=== PATIENT | female | born 1985 | race African-American/Black ===

== ENCOUNTER 2016-12-20 18:36 | Emergency (ER) | payer OTHER ==
[2016-12-20 18:46] VITALS: BP 131/57; PULSE 62; TEMP 98.3; BMI 33.4
--- NOTE | 2016-12-20 19:46 | PDOC ---
History of Present Illness - General Chief Complaint: Pain Stated Complaint: STOMACH PAIN Time Seen by Provider: 12/20/16 19:42 History Source: Patient Exam Limitations: No Limitations - History of Present Illness Initial Comments: 12/20/16 19:46 The patient is a 31 year old female, with a significant past medical history of hereditary spherocytosis and diverticulitis, who presents to the emergency department with left sided stomach and mid back pain x 3 days. Patient states pain is 9/10, constant, nonradiating. Patient tried midol with minimal improvement in her pain. Patient states she is on depot and her LMP was in July. Patient endorses nausea, vomting x 3 (nonbloody/nonbilious), and constipation x3 days. Patient denies fever, chills, chest pain, shortness of breath, headache and dizziness. Denies dysuria, frequency, urgency and hematuria. Allergies: NKDA Past surgical history: splenectomy Social history:1/2 ppd x10 yrs. No alcohol/drug use PMD - Dr. Dodson. GI- Does not have 12/20/16 20:25 Past History - Past Medical History Allergies/Adverse Reactions: Allergies Allergy/AdvReac Type Severity Reaction Status Date / Time No Known Allergies Allergy Verified 01/14/16 00:34 Home Medications: Ambulatory Orders Amox-Tr/K Cl [Augmentin 875-125mg Tablet -] 1 tab PO BID #20 tablet 12/21/16 Ondansetron [Zofran *Odt*] 8 mg PO DAILY PRN #20 tab.rapdis MDD 2 tablets Oxycodone HCl/Acetaminophen [Percocet 5-325 mg Tablet] 1 tab PO Q6H #12 tablet MDD 4 tablets total 12/21/16 Anemia: Yes (Spherocytis) Asthma: No Cancer: No Cardiac Disorders: No CVA: No COPD: No CHF: No Dementia: No Diabetes: No GI Disorders: Yes (DIVERTICULITIS) Disorders: No HTN: No Hypercholesterolemia: No Liver Disease: No Seizures: No Thyroid Disease: No Other medical history: Spleen removed at age 6 - Surgical History Abdominal Surgery: Yes (abcess drain and splenectomy) - Reproductive History (#): 1 Para: 1 - Immunization History Immunization Up to Date: Yes - Suicide/Smoking/Psychosocial Hx Smoking History: Current every day smoker Have you smoked in the past 12 months: No Number of Cigarettes Smoked Daily: 10 Information on smoking cessation initiated: No 'Breaking Loose' booklet given: 12/20/16 Hx Alcohol Use: No Drug/Substance Use Hx: No Substance Use Type: None Hx Substance Use Treatment: No Review of Systems - Review of Systems Able to Perform ROS?: Yes Comments:: 12/20/16 19:46 GENERAL/CONSTITUTIONAL: No fever or chills. No weakness. HEAD, EYES, EARS, NOSE AND THROAT: No change in vision. No ear pain or discharge. No sore throat. CARDIOVASCULAR: No chest pain or shortness of breath RESPIRATORY: No cough, wheezing, or hemoptysis. GASTROINTESTINAL: +nausea, +vomiting, No diarrhea, +constipation. +abdominal pain, +back pain GENITOURINARY: No dysuria, frequency, or change in urination. MUSCULOSKELETAL: No joint or muscle swelling or pain. No neck or back pain. SKIN: No rash NEUROLOGIC: No headache, vertigo, loss of consciousness, or change in strength/ sensation. ENDOCRINE: No increased thirst. No abnormal weight change HEMATOLOGIC/LYMPHATIC: No anemia, easy bleeding, or history of blood clots. ALLERGIC/IMMUNOLOGIC: No hives or skin allergy. *Physical Exam - Vital Signs Last Vital Signs Temp Pulse Resp BP Pulse Ox 98.3 F 62 18 131/57 100 12/20/16 18:44 12/20/16 18:44 12/20/16 18:44 12/20/16 18:44 12/20/16 18:44 - Physical Exam Comments: 12/20/16 19:46 GENERAL: Awake, alert, and fully oriented, in no acute distress HEAD: No signs of trauma, normocephalic, atraumatic EYES: PERRLA, EOMI, sclera anicteric, conjunctiva clear ENT: Auricles normal inspection, hearing grossly normal, nares patent, oropharynx clear without exudates. Moist mucosa NECK: Normal ROM, supple, no lymphadenopathy, JVD, or masses LUNGS: No distress, speaks full sentences, clear to auscultation bilaterally HEART: Regular rate and rhythm, normal S1 and S2, no murmurs, rubs or gallops, peripheral pulses normal and equal bilaterally. ABDOMEN: Soft, +tender to LUQ and LLQ (Deep palpation), normoactive bowel sounds. No guarding, no rebound. No masses EXTREMITIES: Normal inspection, Normal range of motion, no edema. No clubbing or cyanosis. NEUROLOGICAL: Cranial nerves II through XII grossly intact. Normal speech, normal gait, no focal sensorimotor deficits SKIN: Warm, Dry, normal turgor, no rashes or lesions noted. 12/20/16 20:24 ED Treatment Course - LABORATORY CBC & Chemistry Diagram: 12/20/16 20:14 12/20/16 20:14 Medical Decision Making - Medical Decision Making 12/20/16 20:25 The patient is a 31 year old female, with a significant past medical history of hereditary spherocytosis and diverticulitis, who presents to the emergency department with left sided stomach and mid back pain x 3 days. Given hx/pe, differential includes diverticulitis, UTI. Plan: CBC, CMP, Lipase, UA, Ucx, Upreg, IVF, CT abd/pelvis with contrast, symptom control Care taken over by Dr. Cardenas *DC/Admit/Observation/Transfer Diagnosis at time of Disposition: Diverticulitis - Discharge Dispostion Disposition: HOME Condition at time of disposition: Improved - Prescriptions Prescriptions: Amox-Tr/K Cl [Augmentin 875-125mg Tablet -] 1 tab PO BID #20 tablet Oxycodone HCl/Acetaminophen [Percocet 5-325 mg Tablet] 1 tab PO Q6H #12 tablet MDD 4 tablets total Ondansetron [Zofran *Odt*] 8 mg PO DAILY PRN #20 tab.rapdis MDD 2 tablets PRN Reason: Nausea And/Or Vomiting - Referrals Referrals: Jose M Dodson MD [Primary Care Provider] - - Patient Instructions Printed Discharge Instructions: DI for Diverticulitis Additional Instructions: Please take your antibiotics, pain meds, and Zofran as prescribed. Please return if you cannot keep your medications down or your pain is not controlled on your medications. - Post Discharge Activity Forms/Work/School Notes: Back to Work
[2016-12-20] MEDS ORDERED: ACETAMINOPHEN 1000 MG/100 ML VIAL (NON FORMULARY) IVPB ONE (20:03)
[2016-12-20] MEDS ORDERED: ONDANSETRON 4 MG/2 ML VIAL IVPUSH ONE ×2 (20:03→21:47)
[2016-12-20] MEDS ORDERED: ACETAMINOPHEN INJECTION 100 ML IVPB ONE (20:09)
[2016-12-20] MEDS ORDERED: ONDANSETRON 4 MG/2 ML VIAL ONE ×2 (20:10→21:52)
[2016-12-20 20:29] LABS: MCH 27.6 pg (25.7-33.7); MCHC 33.8 g/dl (32.0-36.0); MEAN CELL VOLUME 81.8 fl (80-96); MEAN PLT VOLUME 7.4 fl (7.5-11.1); PLATELET COUNT 541 K/MM3 (134-434); RDW 14.1 % (11.6-15.6); WHITE BLOOD COUNT 23.8 K/mm3 (4.0-10.0)
[2016-12-20 20:48] LABS: URINE APPEARANCE SLCLOUDY; URINE BILIRUBIN NEGATIVE (NEGATIVE); URINE BLOOD 2+ (NEGATIVE); URINE COLOR DKYELLOW; URINE GLUCOSE (UA) NEGATIVE (NEGATIVE); URINE KETONE 2+ (NEGATIVE); URINE NITRITE NEGATIVE (NEGATIVE); URINE UROBILINOGEN 4.0 E.U/dl mg/dL (0.2-1.0)
[2016-12-20 20:51] LABS: ALBUMIN 3.6 g/dl (3.4-5.0); ALK PHOS 67 U/L (45-117); ANION GAP 9 (8-16); BILIRUBIN,TOTAL 0.5 mg/dL (0.2-1.0); CALCIUM 9.6 mg/dL (8.5-10.1); CO2 27 mmol/L (21-32); GLUCOSE,RANDOM 91 mg/dL (74-106); SGOT/AST 11 U/L (15-37); SGPT/ALT 13 U/L (12-78); TOT PROT 8.2 g/dl (6.4-8.2)
[2016-12-20 21:22] LABS: PLATELET ESTIMATE SLT INCREASED (NORMAL); REACTIVE LYMPHOCYTES 2 % (0-80); TOTAL CELLS COUNTED 100
[2016-12-20 21:29] LABS: URINE PROTEIN 1+ (NEGATIVE)
[2016-12-20 21:31] LABS: URINE MUCUS MANY; URINE RBC 21 /hpf (0-3); URINE WBC 3 /hpf (3-5)
[2016-12-20] MEDS ORDERED: SODIUM CHLORIDE 1,000 ML IV STA (21:47)
[2016-12-20] MEDS ORDERED: morphine CARPU-JECT 4 MG/1 ML DISP.SYRIN IVPUSH ONE (21:50)
--- NOTE | 2016-12-20 21:50 | PDOC ---
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 She states the pain is colicky, sharp, intermittent. She has had left sided pain with her diverticulitis in past, but it was constant, not intermittent. She has had associated constipation, nausea, and vomiting. No fever. - Physicial Exam PE: GENERAL: Awake, alert, and fully oriented, in no acute distress. Appears uncomfortable. HEAD: No signs of trauma EYES: PERRLA, EOMI, sclera anicteric, conjunctiva clear ENT: Auricles normal inspection, hearing grossly normal, nares patent, oropharynx clear without exudates. Dry mucosa NECK: Normal ROM, supple, no lymphadenopathy, JVD, or masses LUNGS: Breath sounds equal, clear to auscultation bilaterally. No wheezes, and no crackles HEART: Regular rate and rhythm, normal S1 and S2, no murmurs, rubs or gallops ABDOMEN: Soft, +LUQ/LLQ tenderness, normoactive bowel sounds. +Guarding, no rebound. No masses EXTREMITIES: Normal range of motion, no edema. No clubbing or cyanosis. No cords, erythema, or tenderness NEUROLOGICAL: Cranial nerves II through XII grossly intact. Normal speech, normal gait SKIN: Warm, Dry, normal turgor, no rashes or lesions noted. - Medical Decision Making Pt presents with L abdominal pain, N/V, constipation. Will obtain labs, UA, and CT to r/o diverticulitis.
[2016-12-20] MEDS ORDERED: morphine CARPU-JECT 2 MG/1 ML DISP.SYRIN ONE (21:53)
[2016-12-21] MEDS ORDERED: morphine CARPU-JECT 4 MG/1 ML DISP.SYRIN IVPUSH ONE (00:39)
--- NOTE | 2016-12-21 00:40 | PDOC ---
*Physical Exam - Vital Signs Last Vital Signs Temp Pulse Resp BP Pulse Ox 98.3 F 62 18 131/57 100 12/20/16 18:44 12/20/16 18:44 12/20/16 18:44 12/20/16 18:44 12/20/16 18:44 ED Treatment Course - LABORATORY CBC & Chemistry Diagram: 12/20/16 20:14 12/20/16 20:14 - ADDITIONAL ORDERS Additional order review: Laboratory Results 12/20/16 12/20/16 12/20/16 21:40 20:15 20:14 Sodium 138 Potassium 4.1 Chloride 102 Carbon Dioxide 27 Anion Gap 9 BUN 8 D Creatinine 1.0 D Creat Clearance w eGFR > 60 Random Glucose 91 Calcium 9.6 Total Bilirubin 0.5 D AST 11 L D ALT 13 D Alkaline Phosphatase 67 Total Protein 8.2 D Albumin 3.6 Lipase 99 Serum , Qual Negative Urine Color Dkyellow Urine Appearance Slcloudy Urine pH 6.0 Urine Protein 1+ H Urine Glucose (UA) Negative Urine Ketones 2+ H Urine Blood 2+ H Urine Nitrite Negative Urine Bilirubin Negative Urine Urobilinogen 4.0 e.u/dl H Urine RBC 21 Urine WBC 3 Ur Epithelial Cells Rare Urine Mucus Many 12/20/16 20:14 RBC 4.66 MCV 81.8 MCHC 33.8 RDW 14.1 MPV 7.4 L D Neutrophils % No Result Required. Lymphocytes % No Result Required. - Medications Given in the ED: ED Medications Discontinued Medications Generic Name Dose Route Start Last Admin Trade Name Richard PRN Reason Stop Dose Admin Acetaminophen 1,000 mg 12/20/16 20:03 12/20/16 20:29 Ofirmev Injection - IVPB 12/20/16 20:04 1,000 mg ONCE ONE Administration Sodium Chloride 1,000 mls @ 1,000 mls/hr 12/20/16 21:47 12/20/16 22:05 Normal Saline - IV 12/20/16 22:46 1,000 mls/hr ASDIR STA Administration Morphine Sulfate 4 mg 12/20/16 21:50 12/20/16 22:04 Morphine Injection - IVPUSH 12/20/16 21:51 4 mg ONCE ONE Administration Ondansetron HCl 4 mg 12/20/16 20:03 12/20/16 20:15 Zofran Injection IVPUSH 12/20/16 20:04 4 mg ONCE ONE Administration Ondansetron HCl 4 mg 12/20/16 21:47 12/20/16 22:04 Zofran Injection IVPUSH 12/20/16 21:48 4 mg ONCE ONE Administration Medical Decision Making - Medical Decision Making 31 year old with hereditary spherocycostis and diverticulitis presenting with LUQ and LLQ pain concerning for repeat diverticulitis pending CT final read. 12/21/16 00:37 CT returned positive for diverticulitis vs. colitis in left colon. Will DC home with augmentin, zofran, and percocet short course. 12/21/16 01:52 *DC/Admit/Observation/Transfer Diagnosis at time of Disposition: Diverticulitis Qualifiers: Diverticulitis site: large intestine Diverticulitis bleeding: without bleeding Diverticulitis complication: without perforation or abscess Qualified Code(s): K57.32 - Diverticulitis of large intestine without perforation or abscess without bleeding; K57.32 - Diverticulitis of large intestine without perforation or abscess without bleeding - Discharge Dispostion Disposition: HOME Condition at time of disposition: Improved Admit: No - Prescriptions Prescriptions: Amox-Tr/K Cl [Augmentin - 875Mg Tablet] 1 tab PO BID #20 tablet Oxycodone HCl/Acetaminophen [Percocet 5-325 mg Tablet] 1 tab PO Q6H #12 tablet MDD 4 tablets total Ondansetron [Ondansetron Odt] 8 mg PO DAILY PRN #20 tab.rapdis MDD 2 tablets PRN Reason: Nausea And/Or Vomiting - Patient Instructions Printed Discharge Instructions: DI for Diverticulitis Additional Instructions: Please take your antibiotics, pain meds, and Zofran as prescribed. Please return if you cannot keep your medications down or your pain is not controlled on your medications.
[2016-12-21] MEDS ORDERED: morphine CARPU-JECT 2 MG/1 ML DISP.SYRIN ONE (00:46)
[2016-12-21] MEDS ORDERED: AMOX TR/POT CLAV 875MG/125MG TABLETS (FP) PO ONE (02:34)
[2016-12-21] MEDS ORDERED: AMOX TR/POT CLAV 875MG/125MG TABLETS (FP) ONE (02:36)
--- NOTE | 2016-12-21 14:49 | PDOC ---
*Physical Exam - Vital Signs Last Vital Signs Temp Pulse Resp BP Pulse Ox 98.3 F 62 18 131/57 100 12/20/16 18:44 12/20/16 18:44 12/20/16 18:44 12/20/16 18:44 12/20/16 18:44 ED Treatment Course - LABORATORY CBC & Chemistry Diagram: 12/20/16 20:14 12/20/16 20:14 - ADDITIONAL ORDERS Additional order review: 12/20/16 20:14 RBC 4.66 MCV 81.8 MCHC 33.8 RDW 14.1 MPV 7.4 L D Neutrophils % No Result Required. Lymphocytes % No Result Required. - Medications Given in the ED: ED Medications Discontinued Medications Generic Name Dose Route Start Last Admin Trade Name Richard PRN Reason Stop Dose Admin Acetaminophen 1,000 mg 12/20/16 20:03 12/20/16 20:29 Ofirmev Injection - IVPB 12/20/16 20:04 1,000 mg ONCE ONE Administration Amoxicillin/Clavulanate Potassium 1 tab 12/21/16 02:34 12/21/16 02:35 Augmentin - 875mg Tablet PO 12/21/16 02:35 1 tab ONCE ONE Administration Sodium Chloride 1,000 mls @ 1,000 mls/hr 12/20/16 21:47 12/20/16 22:05 Normal Saline - IV 12/20/16 22:46 1,000 mls/hr ASDIR STA Administration Morphine Sulfate 4 mg 12/20/16 21:50 12/20/16 22:04 Morphine Injection - IVPUSH 12/20/16 21:51 4 mg ONCE ONE Administration Morphine Sulfate 4 mg 12/21/16 00:39 12/21/16 00:57 Morphine Injection - IVPUSH 12/21/16 00:40 4 mg ONCE ONE Administration Ondansetron HCl 4 mg 12/20/16 20:03 12/20/16 20:15 Zofran Injection IVPUSH 12/20/16 20:04 4 mg ONCE ONE Administration Ondansetron HCl 4 mg 12/20/16 21:47 12/20/16 22:04 Zofran Injection IVPUSH 12/20/16 21:48 4 mg ONCE ONE Administration Medical Decision Making - Medical Decision Making 12/21/16 14:49 Patient called to report that prescriptions did not go through. Prescriptions recent to pharmacy on record *DC/Admit/Observation/Transfer Diagnosis at time of Disposition: Diverticulitis Qualifiers: Diverticulitis site: large intestine Diverticulitis bleeding: without bleeding Diverticulitis complication: without perforation or abscess Qualified Code(s): K57.32 - Diverticulitis of large intestine without perforation or abscess without bleeding - Discharge Dispostion Disposition: HOME Condition at time of disposition: Improved - Prescriptions Prescriptions: Amox-Tr/K Cl [Augmentin 875-125mg Tablet -] 1 tab PO BID #20 tablet Oxycodone HCl/Acetaminophen [Percocet 5-325 mg Tablet] 1 tab PO Q6H #12 tablet MDD 4 tablets total Ondansetron [Zofran *Odt*] 8 mg PO DAILY PRN #20 tab.rapdis MDD 2 tablets PRN Reason: Nausea And/Or Vomiting - Referrals Referrals: Jose M Dodson MD [Primary Care Provider] - - Patient Instructions Printed Discharge Instructions: DI for Diverticulitis Additional Instructions: Please take your antibiotics, pain meds, and Zofran as prescribed. Please return if you cannot keep your medications down or your pain is not controlled on your medications. - Post Discharge Activity Forms/Work/School Notes: Back to Work
[2016-12-21 15:45] LABS: URINE LEUK ESTERASE Negative (NEGATIVE)
== END 2016-12-21 02:41 | disposition home or self-care (01) ==
LOC: JER 18:36
PROC: 3E033GC Introduction of Other Therapeutic Substance into Peripheral Vein, Percutaneous Approach (ICD-10-PCS; principal; 2016-12-20)
PROC: 3E0337Z Introduction of Electrolytic and Water Balance Substance into Peripheral Vein, Percutaneous Approach (ICD-10-PCS; 2016-12-20)
DX: K57.32 Diverticulitis of large intestine without perforation or abscess without bleeding (principal); D58.0 Hereditary spherocytosis; F17.210 Nicotine dependence, cigarettes, uncomplicated; Z90.81 Acquired absence of spleen
CPT/HCPCS: 36415; 74177-TC; 80053; 81003; 81015; 83690; 84703; 85025; 87086; 99284-25